=== PATIENT | female | born 1975 | race Caucasian/White ===

== ENCOUNTER → 2017-12-03 | Outpatient (CLI) | payer OTHER | END | disposition home or self-care (01) | LOC: CFH 07:07 | DX: D18.03 Hemangioma of intra-abdominal structures (principal) | CPT/HCPCS: 76705 ==

== ENCOUNTER → 2018-01-07 | Outpatient (CLI) | payer OTHER ==
[~2018-01-07] MED LIST: SINCALIDE (KINEVAC) 5 MCG ONE
== END | disposition home or self-care (01) ==
LOC: PETCFH 08:11
PROVIDERS: ATTEND Family Medicine
DX: R10.11 Right upper quadrant pain (principal)
CPT/HCPCS: 78227; A9537; J2805

== ENCOUNTER → 2018-02-09 | Outpatient (CLI) | payer OTHER | END | disposition home or self-care (01) | LOC: CFH 07:10 | PROVIDERS: ATTEND Family Medicine | DX: Z12.31 Encounter for screening mammogram for malignant neoplasm of breast (principal) | CPT/HCPCS: 77067 ==

== ENCOUNTER → 2018-03-18 | Outpatient (CLI) | payer OTHER ==
[~2018-03-18] MED LIST changes: +NONE PER PT; -SINCALIDE (KINEVAC) 5 MCG ONE
== END | disposition home or self-care (01) ==
LOC: STAR 07:52
PROVIDERS: ATTEND Surgery
DX: Z02.9 Encounter for administrative examinations, unspecified (principal)

== ENCOUNTER 2018-03-30 06:17 | Day surgery (SDC) | payer OTHER ==
[~2018-03-30] VITALS: Ht 162.6 cm; Wt 87.0 kg
[2018-03-30] MEDS ORDERED: LACTATED RINGERS 1,000 ML IV SCH (06:45)
[2018-03-30 06:46] VITALS: BP 126/88
[2018-03-30] MEDS ORDERED: BUPIVACAINE/PF-EPI 0.5% 1:200K ONE (06:56)
[2018-03-30 07:02] LABS: HCG UR SG 1.022 (1.003-1.030)
[2018-03-30] MEDS ORDERED: MIDAZOLAM 1 MG/ML, 2ML ONE (07:22)
[2018-03-30] MEDS ORDERED: FENTANYL PF 250 MCG/5ML ONE (07:22)
[2018-03-30] MEDS ORDERED: LIDOCAINE JELLY 2%, 30GM ONE (07:23)
[2018-03-30] MEDS ORDERED: LIDOCAINE-MPF 2% ,5ML ONE ×2 (07:25→07:51)
[2018-03-30] MEDS ORDERED: GABAPENTIN 300 MG CAPSULE PO ONE (07:30)
[2018-03-30] MEDS ORDERED: SCOPOLAMINE PATCH, 1.5MG PATCH.TD72 TD ONE (07:30)
[2018-03-30] MEDS ORDERED: DIAZEPAM 5 MG TABLET PO ONE (07:30)
[2018-03-30] MEDS ORDERED: ACETAMINOPHEN 500 MG TABLET PO ONE (07:30)
[2018-03-30] MEDS ORDERED: ONDANSETRON ODT 8 MG PO ONE (07:30)
[2018-03-30] MEDS ORDERED: ROCURONIUM 10MG/ML,5ML ONE (07:51)
[2018-03-30] MEDS ORDERED: GLYCOPYRROLATE 0.2MG/1ML, 5ML ONE (07:51)
[2018-03-30] MEDS ORDERED: NEOSTIGMINE 1 MG/ML, 10ML ONE (07:51)
[2018-03-30] MEDS ORDERED: DEXAMETHASONE 4 MG/ML, 1ML ONE (07:51)
[2018-03-30] MEDS ORDERED: KETOROLAC 30 MG/1 ML ONE (07:51)
[2018-03-30] MEDS ORDERED: PROPOFOL 10 MG/ML, 20ML ONE (07:51)
[2018-03-30] MEDS ORDERED: CEFAZOLIN 1,000 MG ONE (07:51)
[2018-03-30] MEDS ORDERED: ONDANSETRON 2MG/ML, 2ML IV PRN (08:00)
[2018-03-30] MEDS ORDERED: OXYcodone 5 MG/5 ML ORAL.SOL UDC PO PRN (08:00)
[2018-03-30] MEDS ORDERED: ALBUTEROL/IPRATROPIUM 2.5MG/0.5MG, 3 ML NPPB PRN (08:00)
[2018-03-30] MEDS ORDERED: DIAZEPAM 5 MG/ML, 2ML IVPush PRN (08:00)
[2018-03-30] MEDS ORDERED: HYDROmorphone 2 MG/ML, 1ML IVPush PRN (08:00)
[2018-03-30] MEDS ORDERED: PROMETHAZINE 25 MG/ML, 1ML IV PRN (08:00)
[2018-03-30] MEDS ORDERED: HALOPERIDOL 5 MG/ML IV PRN (08:00)
[2018-03-30] MEDS ORDERED: MIDAZOLAM 1 MG/ML, 2ML IV PRN (08:00)
[2018-03-30] MEDS ORDERED: MEPERIDINE/PF 25MG/0.5ML IVPush PRN (08:00)
[2018-03-30] MEDS ORDERED: OXYcodone 5 MG/5 ML ORAL.SOL UDC ONE (08:28)
[2018-03-30] MEDS ORDERED: FENTANYL PF 100 MCG/2ML ONE (08:28)
[2018-03-30] MEDS ORDERED: MEPERIDINE/PF 50 MG/ML ONE (08:28)
== END 2018-03-30 11:00 | disposition home or self-care (01) ==
LOC: OUT 06:17
PROVIDERS: ATTEND Surgery
DX: K81.1 Chronic cholecystitis (principal); K21.9 Gastro-esophageal reflux disease without esophagitis; F41.9 Anxiety disorder, unspecified; Z98.890 Other specified postprocedural states; Z72.89 Other problems related to lifestyle; Z87.891 Personal history of nicotine dependence; Z88.1 Allergy status to other antibiotic agents; Z88.5 Allergy status to narcotic agent; Z88.8 Allergy status to other drugs, medicaments and biological substances
CPT/HCPCS: 47562; 81025; 88304; J0690; J1100; J1885; J2175; J2250; J2704; J2710; J3010; J3490; J7120; Q0162